=== PATIENT | female | born 1955 | race Caucasian/White ===

== ENCOUNTER 2018-05-06 08:26 | Day surgery (SDC) | payer BC ==
--- OUTSIDE RECORDS SUMMARY | 2018-05-06 08:29 | XMS REPORT | Clinical Summary ---
:1955 Author Organization [facility] Address [address] [place] [address] Care Team Providers Name Role Phone Dmitri Braun Primary Care Provider Allergies Not on File Current Medications Not on file Active Problems Not on file Encounters Date Type Specialty Care Team Description 02/24/2018 Hospital Encounter Radiology Yuri Ramirez MD Neurogenic claudication 02/11/2018 Transcribe Orders Access Yuri Ramirez MD Neurogenic claudication (Primary Dx) after 05/05/2017 Social History Tobacco Use Types Packs/Day Years Used Date Never Assessed Sex Assigned at Date Recorded Not on file Last Filed Vital Signs Not on file Plan of Treatment Health Maintenance Due Date Last Done Comments CERVICAL CANCER SCREENING 1974 BREAST CANCER SCREENING 2003 COLON CANCER SCREENING 2003 SHINGRIX VACCINE (#1) 2003 ZOSTER VACCINE 2013 INFLUENZA VACCINE 06/24/[address] Lumbar Spine Wo Contrast (02/24/2018 12:27 PM) Specimen Performing Laboratory [facility] [address] [place] [address] Narrative EXAMINATION:CT LUMBAR SPINE WO CONTRAST CLINICAL HISTORY:M48.062 Spinal stenosislumbar region with neurogenic claudication, m48.062 COMPARISON: None FINDINGS: Noncontrast CT of the lumbar spine is interpreted. CT imaging was performed with iterative reconstruction techniques and/or automated exposure control to reduce radiation dose. Evaluation of the canal contents is limited by the absence of intrathecal contrast. L1-2: Mild loss of disc height. Minimal dorsal endplate spurring. L2-3: Moderate loss of disc height that is asymmetric and most pronounced the left. Mild endplate sclerosis and mild endplate irregularity. Minimal dorsal endplate spurring. Mild disc bulge. Mild left facet arthrosis. Mild canal stenosis. L3-4: Moderate loss of disc height. Mild disc bulge. Minimal bilateral facet arthrosis. L4-5: Moderate loss of disc height is asymmetric and most pronounced the right. Mild endplate irregularity and sclerosis. Minimal disc bulge. Mild bilateral facet arthrosis. Mild right foraminal narrowing. L5-S1: [id number] bilateral facet arthrosis. Mild bilateral foraminal stenosis. The paraspinous soft tissues are unremarkable. IMPRESSION: Moderate lumbar spondylosis. No significant canal or foraminal stenosis. [facility]-[id number] Procedure Note Hm Interface, Radiology Results Incoming - 02/24/2018 4:18 PM CDT EXAMINATION: CT LUMBAR SPINE WO CONTRAST CLINICAL HISTORY: M48.062 Spinal stenosis lumbar region with neurogenic claudication, m48.062 COMPARISON: None FINDINGS: Noncontrast CT of the lumbar spine is interpreted. CT imaging was performed with iterative reconstruction techniques and/or automated exposure control to reduce radiation dose. Evaluation of the canal contents is limited by the absence of intrathecal contrast. L1-2: Mild loss of disc height. Minimal dorsal endplate spurring. L2-3: Moderate loss of disc height that is asymmetric and most pronounced the left. Mild endplate sclerosis and mild endplate irregularity. Minimal dorsal endplate spurring. Mild disc bulge. Mild left facet arthrosis. Mild canal stenosis. L3-4: Moderate loss of disc height. Mild disc bulge. Minimal bilateral facet arthrosis. L4-5: Moderate loss of disc height is asymmetric and most pronounced the right. Mild endplate irregularity and sclerosis. Minimal disc bulge. Mild bilateral facet arthrosis. Mild right foraminal narrowing. L5-S1: [id number] bilateral facet arthrosis. Mild bilateral foraminal stenosis. The paraspinous soft tissues are unremarkable. IMPRESSION: Moderate lumbar spondylosis. No significant canal or foraminal stenosis. [facility]-[id number] after 05/05/2017 Insurance Payer Benefit Plan / Group Subscriber ID Type Phone Address [facility] [employer] xxxxxxxxxxxx O Home: [address] [facility] [phone] [address]
[2018-05-06 08:59] LABS: MPV 7.8 fL (7.6-11.3)
[2018-05-06 09:32] LABS: Platelet Estimate ADEQ
--- NOTE | 2018-05-06 12:26 | RAD REPORT ---
EXAM DESCRIPTION: RAD - Myelography Lumbar - 05/06/2018 11:10 am CLINICAL HISTORY: [id number] COMPARISON: Lumbar spine March 14, 2016, MRI lumbar spine May 2016 TECHNIQUE: The lumbar myelogram procedure, risks and alternatives to the procedure were discussed wi th the patient in detail. After answering all questions, both oral and written consent were obtained. Time-out procedure was performed. Patient off all anticoagulation medications x7 days. The patient was placed in an oblique prone position on the fluoroscopic table. The skin of the lower back was prepped and draped in the usual sterile fashion. After anesthetizing the skin and deeper sof t tissues with 1% lidocaine, a 22 gauge needle was advanced into the thecal sac at the L3 level. Intrathecal placement was confirmed. Approximately 11 mL of Isovue M 200 contrast material was instil led into the thecal sac. Needle was withdrawn and multiple myelogram images were obtained. Sterile bandage placed over the puncture site. The patient tolerated the procedure well without immed iate complications. Post-procedure care and precaution instructions were discussed with the patient b efore the LP procedure. Patient was transferred to the CT suite for cross-sectional imaging and an tr ansferred to same-day surgery for postprocedure monitoring. Fluoro time: 2.0 minutes IMPRESSION: Successful fluoroscopic guided lumbar myelogram. Myelogram findings are incorporated int o the CT lumbar spine report.
--- NOTE | 2018-05-06 12:50 | RAD REPORT ---
EXAM DESCRIPTION: CT - Spine Lumbar Wo Con - 05/06/2018 11:09 am CLINICAL HISTORY: Back pain, patient provided history of left greater than right lower extremity rad iculopathy. [id number] COMPARISON: Lumbar myelogram same date, MRI lumbar spine May 2016 TECHNIQUE: Thin-section axial 2 millimeter thick images of the lumbar spine were obtained. Sagittal and coronal reformatted images were generated and reviewed. Angled thin section reconstruction imagin g obtained through the [address] scans are performed using dose optimization technique as appropriate and may include automated exposure control or mA/KV adjustment according to patient size. FINDINGS: Lumbar bodies are normal in height. No AP alignment abnormality. Patient has a very minima l right convex curvature of the mid and upper lumbar spine. This is stable from the examination of 2 years earlier. No lytic, sclerotic or expansile bony destructive process. No paraspinal mass identifi ed. Axial images do demonstrate innumerable punctate gallstones filling a contracted gallbladder. Aortic calcifications are present without aneurysm or displaced calcification. Conus terminates at the L1-2 disc level. There is no clumping or thickening of the cauda equina. T12-L1 level: Minimal disc bulge showing no mass effect on the thecal sac. No canal or foramen stenos is. L1-2 level: Large protrusion of disc material extends across the central canal and into each exit for amen. Mild loss disc height noted. Anterior thecal sac is flattened. Midline AP thecal sac diameter i s 13 mm. No significant foraminal encroachment. Minimal facet degenerative change. Disc bulge is shila lar to the 2016 MRI study. L2-3 level: Disc height is diminished but stable from prior imaging. Prominent circumferential bulgin g of disc material is present. This is much more pronounced within the left exit foramen where there is significant left foraminal stenosis. Midline and left anterior thecal sac flattening noted. Midlin e thecal sac diameter is 9-10 mm. Right foraminal encroachment is mild. Ligamentous thickening and fa cet degenerative changes are present. L3-4 level: There is loss in disc height. Mild circumferential bulging of disc material is present. D isc bulge and endplate spurring continuing into each exit foramen. No facet degenerative change prese nt. No significant foraminal stenosis. Central canal is 10-2011 mm in the midline. L4-5 level: Disc height is diminished. Circumferential bulging of disc material is present. No centra l spinal stenosis. Facet degenerative change seen. No significant foraminal stenosis. L5-S1 level: No herniation or significant degree of disc bulge. Disc bulging appears less pronounced than seen in 2016. No canal or foramen stenosis. Advanced facet joint degenerative changes are presen t. IMPRESSION: L2-3 advanced protruding disc material in the exit foramen and far lateral extraforamina l space. Protruding disc material causes borderline to mild central spinal stenosis and significant l eft foraminal stenosis. The left foramen stenosis is progressive from 2016. Degenerative disc disease is present throughout the lumbar spine detailed at each level. The disc bul ge, endplate spurring, facet degenerative change and ligamentous thickening are not substantially dif ferent from 2016 imaging. The L5-S1 facet degenerative changes are progressive but do not contribute to any greater canal or fo ramen narrowing.
== END 2018-05-06 13:45 | disposition home or self-care (01) ==
LOC: DS 08:26
PROVIDERS: ATTEND Specialist
PROC: B01BYZZ Fluoroscopy of Spinal Cord using Other Contrast (ICD-10-PCS; principal; 2018-05-06)
DX: M47.26 Other spondylosis with radiculopathy, lumbar region (principal)
CPT/HCPCS: 36415; 62304; 72131; 85049